=== PATIENT | female | born 1995 | race American Indian/Alaskan Native ===

== ENCOUNTER 2017-04-26 08:22 | Emergency (ER) | payer SELFPAY ==
[2017-04-26 08:32] VITALS: BP 122/73
--- NOTE | 2017-04-26 08:38 | Emergency Department Report ---
Chief Complaint: Vaginal Bleeding Stated Complaint: BLEEDING W/ INTERCOU, NAUSEA - HPI History of Present Illness: vss nad no life threat needs further eval in ed - Exam Vital Signs: Vital Signs 04/26/17 08:29 Temperature 99 F Pulse Rate 84 Respiratory 16 Rate Blood Pressure 122/73 O2 Sat by Pulse 100 Oximetry MSE screening note: Focused history and physical exam performed. Due to findings the following was ordered: ED Medical Decision Making - Lab Data Result diagrams: 04/26/17 08:37 ED Disposition for MSE Condition: Stable
[2017-04-26 08:53] LABS: Basophils % (Auto) 0.5 % (0.0-1.8); Eosinophils % (Auto) 1.4 % (0.0-4.3); Hematocrit 38.8 % (30.3-42.9); Hemoglobin 12.5 gm/dl (10.1-14.3); Mean Corpuscular HGB Conc 32 % (30-34); Mean Corpuscular Hemoglobin 29 pg (28-32); Mean Corpuscular Volume 90 fl (79-97); Platelet Count 352 K/mm3 (140-440); Red Blood Count 4.33 M/mm3 (3.65-5.03); Red Cell Distribution Width 14.7 % (13.2-15.2); White Blood Count 6.8 K/mm3 (4.5-11.0)
[2017-04-26 09:44] LABS: Bilirubin,Urine NEG (Negative); Blood,Urine LG (Negative); Ketones,Urine NEG (Negative); Leukocyte Esterase,Urine NEG (Negative); Nitrite,Urine NEG (Negative); Protein,Urine <15 mg/dL mg/dL (Negative); Urobilinogen,Urine < 2.0 mg/dL (<2.0)
--- NOTE | 2017-04-26 10:57 | Emergency Department Report ---
ED Female HPI - General Chief complaint: Vaginal Bleeding Stated complaint: BLEEDING W/ INTERCOU, NAUSEA Time Seen by Provider: 04/26/17 10:49 Source: patient Mode of arrival: Ambulatory Limitations: No Limitations - History of Present Illness MD Complaint: vaginal bleeding -: Gradual, days(s) Severity: mild Consistency: constant Improves with: other (11-) Are you Now?: No Last Menstrual Period: 04/11/17 EDC: 01/16/18 Associated Symptoms: vaginal bleeding. denies: vaginal discharge, abdominal pain, nausea/vomiting, fever/chills, headaches, loss of appetite, dysuria, hematuria, rash, seizure, shortness of breath, syncope, weakness - Related Data Sexually active: Yes : 0 Previous Rx's Medication Instructions Recorded Last Taken Type traMADol [Ultram] 50 mg PO Q6HR PRN #10 tablet 11/08/15 Unknown Rx Allergies Allergy/AdvReac Type Severity Reaction Status Date / Time No Known Allergies Allergy Verified 02/21/15 09:32 ED Review of Systems ROS: Stated complaint: BLEEDING W/ INTERCOU, NAUSEA Other details as noted in HPI Comment: All other systems reviewed and negative Genitourinary: as per HPI, abnormal menses ED Past Medical Hx - Past Medical History Previous Medical History?: Yes Additional medical history: Anemia - Surgical History Past Surgical History?: No - Social History Smoking Status: Current Every Day Smoker Substance Use Type: Alcohol - Medications Home Medications: Home Medications Medication Instructions Recorded Confirmed Last Taken Type traMADol [Ultram] 50 mg PO Q6HR PRN #10 tablet 11/08/15 Unknown Rx ED Physical Exam - General Limitations: No Limitations General appearance: alert - Head Head exam: Present: atraumatic - Eye Eye exam: Present: PERRL Pupils: Present: normal accommodation - ENT ENT exam: Present: mucous membranes moist - Neck Neck exam: Present: normal inspection - Respiratory Respiratory exam: Present: normal lung sounds bilaterally - Cardiovascular Cardiovascular Exam: Present: regular rate - GI/Abdominal GI/Abdominal exam: Present: soft, normal bowel sounds. Absent: distended, tenderness, guarding, rebound, rigid - Rectal Rectal exam: Present: deferred - Extremities Exam Extremities exam: Present: normal inspection - Back Exam Back exam: Present: normal inspection, full ROM. Absent: tenderness, CVA tenderness (R), CVA tenderness (L) - Neurological Exam Neurological exam: Present: alert, oriented X3, CN II-XII intact, normal gait - Psychiatric Psychiatric exam: Present: normal affect, normal mood - Skin Skin exam: Present: warm, dry, intact ED Course Vital Signs 04/26/17 08:29 Temperature 99 F Pulse Rate 84 Respiratory 16 Rate Blood Pressure 122/73 O2 Sat by Pulse 100 Oximetry - Reevaluation(s) Reevaluation #1: 04/26/17 12:12 here w vag bleed p intercourse last week, it stopped, and started again today preg neg 1 sex partner no abd pain or other co labs noted discussed w 21 y old and mother etio of abn menses in young otherwise healthy women. She will follow up with obgyn this week vss non toxic non ill h/h stable no tachy no hypotension ED Medical Decision Making - Lab Data Result diagrams: 04/26/17 08:37 - Medical Decision Making see note - Differential Diagnosis ro preg Critical care attestation.: If time is entered above; I have spent that time in minutes in the direct care of this critically ill patient, excluding procedure time. ED Disposition Clinical Impression: Vaginal bleeding Disposition: DC-01 TO HOME OR SELFCARE Is pt being admited?: No Does the pt Need Aspirin: No Condition: Stable Referrals: PRIMARY CARE, [Primary Care Provider] - 3-5 Days JANNETH BAILEY MD [Referring] - 3-5 Days KENIA MCFADDEN MD [Referring] - 3-5 Days Time of Disposition: 10:56
== END 2017-04-26 11:00 | disposition home or self-care (01) ==
LOC: ED 08:22
DX: N93.9 Abnormal uterine and vaginal bleeding, unspecified (principal); F17.200 Nicotine dependence, unspecified, uncomplicated
CPT/HCPCS: 99283

== ENCOUNTER 2021-11-14 07:50 | Emergency (ER) | payer SELFPAY ==
[2021-11-14 09:49] VITALS: BP 119/73
== END 2021-11-14 15:28 | disposition left against medical advice (07) ==
LOC: ED 07:50
DX: K14.8 Other diseases of tongue (principal); Z53.21 Procedure and treatment not carried out due to patient leaving prior to being seen by health care provider